=== PATIENT | female | born 1960 | race Caucasian/White ===

== ENCOUNTER 2017-09-08 05:11 | Day surgery (SDC) | payer MEDICAID ==
[~2017-09-08 05:11] MED LIST: BAYER CHEWABLE81 MG PO; BUMEX2 MG PO; DICLOFENAC SODI50 MG PO; FLOVENT HFA 11012 GM INH; FLUTICASONE PRO16 GM NASAL; GLUCOPHAGE500 MG PO; K-TAB10 MEQ PO; LISINOPRIL5 MG PO; PLAVIX75 MG PO; PRILOSEC20 MG PO
[2017-09-08] MEDS ORDERED: BLOOD SUGAR (06:39)
[2017-09-08 06:40] VITALS: BP 148/92; BMI 41.9
[2017-09-08 06:46] LABS: HEMATOCRIT 35.8 % (36.0-48.0); HEMOGLOBIN 11.3 g/dL (12-16); MCH 29.4 pg (26.0-34.0); MCHC 31.6 g/dL (31.0-37.0); MCV 93.2 fL (80.0-100.0); MEAN PLATELET VOLUME 10.2 fL (7.4-10.4); RBC 3.84 10x6/uL (4.00-5.40); RDW 12.8 % (11.5-14.5); WBC 7.7 10x3/uL (4.8-10.8)
[2017-09-08 07:01] LABS: CALC OSMOLALITY 283 mosm/kg (275-300); CALCIUM 9.3 mg/dL (8.5-10.1); CARBON DIOXIDE 28.8 mmol/L (21.0-32.0); CHLORIDE - SERUM 104 mmol/L (98-107); CREATININE - SERUM 0.8 mg/dL (0.6-1.3); GLUCOSE 116 mg/dL (74-106); POTASSIUM - SERUM 4.4 mmol/L (3.5-5.1); SODIUM 141 mmol/L (136-145); UREA NITROGEN 17 mg/dL (7-18); eGFR NON AFRICAN AMERICAN 78 mL/min (90-120)
[2017-09-08] MEDS ORDERED: HYDROCODON-ACE1 EAC7 PO (09:12)
--- NOTE | 2017-09-08 12:03 | OP ---
PATIENT NAME: RENATA DICKINSON MEDICAL RECORD: [id number] :56 LOCATION:[facility] ADMISSION DATE: SURGEON: KELSEA JENNIGNS MD DATE OF OPERATION: 09/08/2017 SURGEON: Kelsea Jennings MD PREOPERATIVE DIAGNOSES: 1. Irreducible hernia, anterior abdominal wall 2. Diabetes. 3. Essential hypertension. 4. Morbid obesity. 5. Coronary artery disease. POSTOPERATIVE DIAGNOSES: 1. Irreducible hernia, anterior abdominal wall 2. Diabetes. 3. Essential hypertension. 4. Morbid obesity. 5. Coronary artery disease. PROCEDURE PERFORMED: Laparoscopic incarcerated incisional hernia repair with Ventralight ST mesh 7 inch x 9 inch. ANESTHESIA: General. COMPLICATIONS: None. SPECIMENS: None. Case was clean. ESTIMATED BLOOD LOSS: 10 cc. OPERATIVE COURSE: After consent was obtained, the patient was taken to the operating room and placed in supine position on the operating table. Next, general anesthesia was given via endotracheal intubation. After a timeout was taken to confirm the correct patient and procedure, the abdomen was prepped and draped in typical sterile fashion and Ioban dressing was placed. Local anesthetic was injected in the left upper quadrant at Aburto's point. A stab incision was made with 11-blade scalpel. Using a 5-mm bladeless optical trocar, the abdomen was entered under direct laparoscopic vision. Adequate pneumoperitoneum was achieved. The abdominal cavity was inspected. No evidence of bowel injury. No evidence of bleeding. At this time, 2 additional trocars were placed, 11-mm trocar in the left lateral quadrant, 5-mm trocar in the left lower quadrant. Two additional 5-mm trocars were placed in the right lateral quadrant, a large amount of incarcerated omentum was noted to be at the contained within the hernia. The preperitoneal fat was taken down using electrocautery and blunt dissection. The hernia sac was dissected and excised from the hernia. The hernia contents were reduced. There was a 5 cm circular defect. There was no previous history of hysterectomy. Two additional small hernia defects were noted, both less than 1 cm, one slightly superior to the main hernia and one superior to the main hernia. At this time a Ventralight 7 inch x 9 inch mesh with Echo positioning system was placed in the abdomen. The Echo positioning system was grabbed to the center of the hernia defect with a OPERATIVE REPORT [id number] RNEATA DICKINSON. The Echo positioning system was deployed with the mesh firmly against the intra-abdominal wall. It was secured to the anterior abdominal wall using the OptiFix tacking device in a double crown fashion. The Echo positioning system was removed. There was adequate 5-7 cm overlap of the hernia defect in all directions. The abdominal cavity was copiously irrigated and suctioned. The bowel was inspected. There was no evidence of bowel injury. No evidence of bleeding. At this time, all remaining trocars removed. The abdomen was desufflated. Trocars were removed. Skin was closed with 4-0 Monocryl, Mastisol, and Steri-Strips. At the end of the case, all needle and instrument counts were correct. No complications occurred. The patient was extubated and transferred to the PACU in stable condition. TRANSINT:[id number] Voice Confirmation ID: [id number] DOCUMENT ID: [id number] KELSEA JENNINGS MD at 1203 CC: [id number] DICTATION DATE: 09/08/17918 CAP JEWEL PLATE ASSEMBLER: 09/08/17 1127 [facility] [address] [id number]
--- NOTE | 2017-09-08 12:53 | NUR ---
1250- PT CONTINUE TO SIT UP IN BEDSIDE CHAIR. FULL LIQUID TRAY BEING CONSUMED AND TOLERATED AT THIS TIME. O2 SAT > 92%, CONTINUES ON 2L O2 NC, WILL CONTINUE TO MONITOR. FAMILY AT BEDSIDE.
== END 2017-09-08 13:45 | disposition home or self-care (01) ==
LOC: D.OPS 05:11 → D.PAN 08:00 → D.OPS 13:45
PROVIDERS: Anesthesiology
DX: K46.0 Unspecified abdominal hernia with obstruction, without gangrene (principal); E11.9 Type 2 diabetes mellitus without complications; I25.10 Atherosclerotic heart disease of native coronary artery without angina pectoris; I10 Essential (primary) hypertension; E66.01 Morbid (severe) obesity due to excess calories; Z68.41 Body mass index [BMI] 40.0-44.9, adult; Z01.812 Encounter for preprocedural laboratory examination

== ENCOUNTER 2019-10-07 06:52 | Day surgery (SDC) | payer MEDICAID ==
[2019-10-06 15:05] LABS: HEMATOCRIT 37.9 % (36.0-48.0); HEMOGLOBIN 12.7 g/dL (12-16); MCH 30.3 pg (26.0-34.0); MCHC 33.5 g/dL (31.0-37.0); MCV 90.5 fL (80.0-100.0); MEAN PLATELET VOLUME 9.7 fL (7.4-10.4); RBC 4.19 10x6/uL (4.00-5.40); RDW 12.9 % (11.5-14.5); WBC 9.2 10x3/uL (4.8-10.8)
[2019-10-06 15:27] LABS: CALC OSMOLALITY 286 mosm/kg (275-300); CALCIUM 9.5 mg/dL (8.5-10.1); CARBON DIOXIDE 29.8 mmol/L (21.0-32.0); CHLORIDE - SERUM 105 mmol/L (98-107); CREATININE - SERUM 0.8 mg/dL (0.6-1.3); GLUCOSE 101 mg/dL (74-106); POTASSIUM - SERUM 4.7 mmol/L (3.5-5.1); SODIUM 143 mmol/L (136-145); UREA NITROGEN 19 mg/dL (7-18); eGFR NON AFRICAN AMERICAN 77 mL/min (90-120)
[~2019-10-07] VITALS: Ht 160 cm; Wt 83.9 kg
[~2019-10-07 06:52] MED LIST changes: +BLOOD SUGAR; +CRESTOR5 MG PO; +HYDROCODON-ACE1 EAC7 PO; +METFORMIN HCL500 M1 PO
[2019-10-07 07:44] VITALS: BP 136/72; Ht 160 cm; Wt 83.9 kg
--- NOTE | 2019-10-07 14:04 | OP ---
PATIENT NAME: RENATA DICKINSON MEDICAL RECORD: [id number] :56 LOCATION:[facility] ADMISSION DATE: SURGEON: KELSEA ODEN MD DATE OF OPERATION: 10/07/2019 PREOPERATIVE DIAGNOSES: 1. Osteoarthritis of the left hip. 2. Trochanteric bursitis of the left hip. POSTOPERATIVE DIAGNOSES: 1. Osteoarthritis of the left hip. 2. Trochanteric bursitis of the left hip. PROCEDURE: 1. Injection intraarticular of the left hip. 2. Bursal injection of the left hip that is injection times 2 under fluoroscopy. SURGEON: Kelsea Oden MD ANESTHESIA: General. INTRAOPERATIVE COMPLICATIONS: None. SUMMARY OF PATHOLOGIC FINDINGS: Consistent with the preoperative radiographs. Fluoroscopy did show the patient to have moderate arthritis and she preoperatively had pain in the trochanteric bursa. OPERATIVE SUMMARY IN DETAIL: After obtaining the appropriate preoperative orthopedic surgery consent as well as anesthetic consultation, evaluation and clearance, the patient was brought to the operating room and placed on the operating table in supine position. After adequate TIVA anesthesia was administered, the left hip was prepped and draped in routine sterile fashion. An 18-gauge needle was then guided into the hip capsule using fluoroscopy. A small amount of Isovue was then utilized to be sure the needle was in the appropriate position. Then, 5 cc of 0.5% Marcaine with epinephrine and 40 mg of Depo-Medrol were injected directly into the hip. Having completed this, this was withdrawn, tip was in good condition, bandage was applied. Attention was then turned to the greater trochanter under fluoroscopic guidance at the greater trochanter. An 18-gauge needle was utilized to inject a second 5 cc of 0.5% Marcaine with epinephrine and 40 mg of Depo-Medrol. This was then withdrawn. Bandages were applied. The patient was awakened and taken back to outpatient in stable condition. TRANSINT:[id number] Voice Confirmation ID: [id number] DOCUMENT ID: [id number] CECILLE LEE, KELSEA ASHLEY at 1404 CC: [id number] DICTATION DATE: 10/07/19911 SOCIAL SERVICES TECHNICIAN: 10/07/19 1027 [facility] 10/07/19 [place] [address]
== END 2019-10-07 10:06 | disposition home or self-care (01) ==
LOC: D.OPS 06:52 → D.PAN 09:00 → D.OPS 09:45 → D.PAN 09:45 → D.OPS 10:06
PROVIDERS: Anesthesiology; ATTEND Orthopaedic Surgery
DX: M16.12 Unilateral primary osteoarthritis, left hip (principal); M70.62 Trochanteric bursitis, left hip; I10 Essential (primary) hypertension; E11.9 Type 2 diabetes mellitus without complications; Z79.84 Long term (current) use of oral hypoglycemic drugs